=== PATIENT | male | born 1995 | race Caucasian/White ===

== ENCOUNTER 2017-11-18 05:17 | Emergency (ER) | payer MEDICAID ==
[~2017-11-18] VITALS: Ht 167.6 cm; Wt 63.0 kg
[2017-11-18] MEDS ORDERED: TRAMADOL 50MG TABLET PO ONE (07:45)
[2017-11-18 09:40] VITALS: BP 116/72
[2017-11-18 10:26] LABS: CLARITY URINE CLEAR (CLEAR); COLOR URINE YELLOW (YELLOW); KETONES URINE NEGATIVE (NEGATIVE); LEUKOCYTE ESTERASE URINE NEGATIVE (NEGATIVE); NITRITE URINE NEGATIVE (NEGATIVE); OCCULT BLOOD URINE NEGATIVE (NEGATIVE); PROTEIN URINE NEGATIVE (NEGATIVE); SPECIFIC GRAVITY URINE 1.024 (1.005-1.030); UROBILINOGEN URINE 0.2 E.U./dL (0.2-1.0)
[2017-11-18] MEDS ORDERED: AZITHROMYCIN 500 MG TABLET PO SCH (10:30)
[2017-11-18] MEDS ORDERED: CEFTRIAXONE SODIUM 250 MG/VIAL IM ONE (10:30)
[2017-11-19] MEDS ORDERED: AZITHROMYCIN 500 MG TABLET PO ONE (09:00)
== END 2017-11-18 11:30 | disposition home or self-care (01) ==
LOC: ER 05:17
DX: H92.01 Otalgia, right ear (principal); I86.1 Scrotal varices; R30.0 Dysuria; Z88.8 Allergy status to other drugs, medicaments and biological substances; F17.210 Nicotine dependence, cigarettes, uncomplicated
CPT/HCPCS: 76870; 81003; 93976; 99285

== ENCOUNTER 2017-11-21 16:31 | Emergency (ER) | payer MEDICAID ==
[~2017-11-21] VITALS: Ht 167.6 cm; Wt 64.0 kg
[2017-11-21] MEDS ORDERED: ALPR0.5T PO (16:35)
[2017-11-21] MEDS ORDERED: KETOROLAC 60MG/2ML VIAL IM ONE (17:15)
[2017-11-21] MEDS ORDERED: LORAZEPAM 0.5MG TABLET PO ONE (17:15)
[2017-11-21 17:28] LABS: CLARITY URINE CLEAR (CLEAR); COLOR URINE YELLOW (YELLOW); KETONES URINE NEGATIVE (NEGATIVE); LEUKOCYTE ESTERASE URINE NEGATIVE (NEGATIVE); NITRITE URINE NEGATIVE (NEGATIVE); OCCULT BLOOD URINE NEGATIVE (NEGATIVE); PH URINE 5.5 (4.5-8.0); PROTEIN URINE NEGATIVE (NEGATIVE); SPECIFIC GRAVITY URINE 1.015 (1.005-1.030); UROBILINOGEN URINE 0.2 E.U./dL (0.2-1.0)
[2017-11-21 19:39] VITALS: BP 103/58
== END 2017-11-21 19:42 | disposition home or self-care (01) ==
LOC: ER 16:31
DX: I86.1 Scrotal varices (principal); Z88.8 Allergy status to other drugs, medicaments and biological substances
CPT/HCPCS: 76870; 81003; 93976; 96372; 99285; J1885; Z7610